=== PATIENT | male | born 1980 | race Two or more races ===

== ENCOUNTER 2016-12-31 14:32 | Emergency (ER) | payer OTHER ==
[~2016-12-31] VITALS: Ht 170.2 cm; Wt 106.1 kg
[2016-12-31 15:50] VITALS: BP 144/98
== END 2016-12-31 16:34 | disposition home or self-care (01) ==
LOC: ER 14:32
DX: H66.3X1 Other chronic suppurative otitis media, right ear (principal); H60.91 Unspecified otitis externa, right ear